=== PATIENT | male | born 1980 | race Caucasian/White ===

== ENCOUNTER 2018-01-09 14:10 | Inpatient (IN) | payer SELFPAY ==
[2018-01-09] MEDS ORDERED: KETOROLAC TROMETHAMINE INJ/PF 30 MG/1 ML SDV IV ONE (15:20)
--- NOTE | 2018-01-09 15:22 | ER Document Report ---
ED Medical Screen (RME) - General Chief Complaint: Back Pain Stated Complaint: BACK PAIN Time Seen by Provider: 01/09/18 15:09 Mode of Arrival: Wheelchair Information source: Patient Notes: 37-year-old male no history of diabetes presents with complaints of bilateral flank pain and increased thirst and urinary frequency Accu-Chek here over 400 I have greeted and performed a rapid initial assessment of this patient. A comprehensive ED assessment and evaluation of the patient, analysis of test results and completion of the medical decision making process will be conducted by additional ED providers. PHYSICAL EXAMINATION: GENERAL: Well-appearing, well-nourished and in no acute distress. HEAD: Atraumatic, normocephalic. EYES: Pupils equal round extraocular movements intact, conjunctiva are normal. ENT: Nares patent NECK: Normal range of motion LUNGS: No respiratory distress Musculoskeletal: Normal range of motion NEUROLOGICAL: Normal speech, normal gait. PSYCH: Normal mood, normal affect. SKIN: Warm, Dry, normal turgor, no rashes or lesions noted. TRAVEL OUTSIDE OF THE [place] IN LAST 30 DAYS: No - Related Data Allergies/Adverse Reactions: No Known Allergies Allergy (Unverified 08/20/11 20:01) Past Medical History - Social History Chew tobacco use (# tins/day): No Frequency of alcohol use: None Drug Abuse: None Renal/ Medical History: Denies: Hx Peritoneal Dialysis Musculoskeltal Medical History: Reports Hx Musculoskeletal Trauma Traumatic Medical History: Reports: Hx Fractures - Fractured clavicle - Immunizations Hx Diphtheria, Pertussis, Tetanus Vaccination: No Physical Exam - Vital signs Vitals: Temp Pulse Resp BP Pulse Ox 97.9 F 115 H 22 H 146/91 H 96 01/09/18 14:20 01/09/18 14:20 01/09/18 14:20 01/09/18 14:20 01/09/18 14:20 Course - Vital Signs Vital signs: Temp Pulse Resp BP Pulse Ox 97.9 F 115 H 22 H 146/91 H 96 01/09/18 14:20 01/09/18 14:20 01/09/18 14:20 01/09/18 14:20 01/09/18 14:20
[2018-01-09] MEDS: NORMAL SALINE 1000 ML 1,000 ML IV PRN ×2 (15:42→16:44)
--- NOTE | 2018-01-09 16:04 | ER Document Report ---
ED Blood Sugar Problem - General Chief Complaint: Back Pain Stated Complaint: BACK PAIN Time Seen by Provider: 01/09/18 15:09 Mode of Arrival: Wheelchair Information source: Patient Notes: Patient presents complaining of a one-week history of back pain. Patient denies any injury to the back. Patient states over the past few days that he has started to develop some tenderness to his abdomen. Patient does report increased thirst and urination. Patient denies any fever, cough or diarrhea. Patient states he has vomited twice today. Patient had an Accu-Chek performed in triage which was over 400. Patient denies any previous history of diabetes. TRAVEL OUTSIDE OF THE [place] IN LAST 30 DAYS: No - HPI Onset: Last week Onset/Duration: Gradual Quality of pain: Achy Pain Level: 3 Associated symptoms: Increased thirst, Frequent urination, Nausea, Vomiting. 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 denies: Arthritis, CAD, CVA, DM, Hyperlipidemia, Hypertension, Malignancy, Thyroid Disfunction Patient has suicidal ideation: No Patient has homicidal ideation: No Renal/ Medical History: Denies: Hx Peritoneal Dialysis Musculoskeltal Medical History: Reports Hx Musculoskeletal Trauma Traumatic Medical History: Reports: Hx Fractures - Fractured clavicle Surgical Hx: Negative - Immunizations Hx Diphtheria, Pertussis, Tetanus Vaccination: No Review of Systems - Review of Systems Constitutional: No symptoms reported. denies: Fever, Recent illness EENT: No symptoms reported Cardiovascular: No symptoms reported. denies: Chest pain Respiratory: No symptoms reported. denies: Cough, Short of breath Gastrointestinal: Abdominal pain, Nausea, Vomiting, Other - Increased thirst. denies: Diarrhea Genitourinary: Frequency, Flank pain Male Genitourinary: No symptoms reported Musculoskeletal: Back pain Skin: No symptoms reported Hematologic/Lymphatic: No symptoms reported Neurological/Psychological: No symptoms reported Physical Exam - Vital signs Vitals: Temp Pulse Resp BP Pulse Ox 97.9 F 115 H 22 H 146/91 H 96 01/09/18 14:20 01/09/18 14:20 01/09/18 14:20 01/09/18 14:20 01/09/18 14:20 - General General appearance: Alert In distress: Mild - HEENT Head: Normocephalic, Atraumatic Eyes: Normal Conjunctiva: Normal Nasal: Normal Mouth/Lips: Normal Mucous membranes: Dry Neck: Normal, Supple. No: Lymphadenopathy - Respiratory Respiratory status: No respiratory distress Chest status: Nontender Breath sounds: Normal Chest palpation: Normal - Cardiovascular Rhythm: Tachycardia Heart sounds: S1 appreciated, S2 appreciated Murmur: No - Abdominal Inspection: Morbidly Obese Distension: No distension Bowel sounds: Normal Tenderness: Tender - Diffuse tenderness, no focal area tenderness Organomegaly: No organomegaly - Back Back: Tender - Thoracolumbar paraspinal tenderness. No: CVA tenderness - Extremities General upper extremity: Normal inspection, Nontender, Normal ROM General lower extremity: Normal inspection, Nontender, Normal ROM - Neurological Neuro grossly intact: Yes Cognition: Normal Dandre Coma Scale Eye Opening: Spontaneous Dandre Coma Scale Verbal: Oriented [place] Coma Scale Motor: Obeys Commands [place] Coma Scale Total: 15 - Psychological Associated symptoms: Normal affect, Normal mood - Skin Skin Temperature: Warm Skin Moisture: Dry Skin Color: Normal Course - Re-evaluation Re-evalutation: 01/09/18 17:44 Patient with laboratory findings worrisome for new onset diabetes with DKA. Patient's potassium reviewed and insulin drip initiated. Consulted with Dr. cherry regarding patient plan of care. Agrees with starting insulin drip at this time. Consulted with hospitalist Dr. Fox who agrees to accept patient for telemetry admission at this time. Patient advised of need for admission and is agreeable at this time. - Vital Signs Vital signs: Temp Pulse Resp BP Pulse Ox 97.9 F 115 H 22 H 160/96 H 98 01/09/18 14:20 01/09/18 14:20 01/09/18 16:23 01/09/18 17:01 01/09/18 17:01 - Laboratory Result Diagrams: 01/09/18 15:40 01/09/18 15:40 Laboratory results interpreted by me: 01/09/18 01/09/18 01/09/18 15:40 15:40 15:40 WBC 19.5 H Abs Neuts (Manual) 12.9 H Abs Lymphs (Manual) 5.5 H VBG pH VBG pCO2 VBG HCO3 Sodium 136.3 L Carbon Dioxide < 5 L* Glucose 326 H POC Glucose Hemoglobin A1c % 9.2 H Magnesium Direct Bilirubin 0.6 H Alkaline Phosphatase 239 H Total Protein 9.0 H Urine Protein Urine Glucose (UA) Urine Ketones Urine Blood 01/09/18 01/09/18 01/09/18 16:36 16:40 17:30 WBC Abs Neuts (Manual) Abs Lymphs (Manual) VBG pH 7.11 L* VBG pCO2 29.4 L VBG HCO3 9.1 L Sodium Carbon Dioxide Glucose POC Glucose 380 H Hemoglobin A1c % Magnesium Direct Bilirubin Alkaline Phosphatase Total Protein Urine Protein >=500 H Urine Glucose (UA) >=500 H Urine Ketones 80 H Urine Blood SMALL H 01/09/18 01/09/18 17:34 18:05 WBC Abs Neuts (Manual) Abs Lymphs (Manual) VBG pH VBG pCO2 VBG HCO3 Sodium Carbon Dioxide Glucose POC Glucose 300 H Hemoglobin A1c % Magnesium 1.5 L Direct Bilirubin Alkaline Phosphatase Total Protein Urine Protein Urine Glucose (UA) Urine Ketones Urine Blood Labs- Entire Visit 01/09/18 01/09/18 01/09/18 15:40 15:40 15:40 WBC 19.5 H RBC 5.15 Hgb 15.0 Hct 45.0 MCV 87 MCH 28.6 MCHC 33.5 RDW 13.9 Plt Count 328 Total Counted 100 Seg Neutrophils % Not Reportable Seg Neuts % (Manual) 66 Lymphocytes % Not Reportable Lymphocytes % (Manual) 28 Monocytes % Not Reportable Monocytes % (Manual) 6 Eosinophils % Not Reportable Eosinophils % (Manual) 0 Basophils % Not Reportable Basophils % (Manual) 0 Absolute Neutrophils Not Reportable Abs Neuts (Manual) 12.9 H Absolute Lymphocytes Not Reportable Abs Lymphs (Manual) 5.5 H Absolute Monocytes Not Reportable Abs Monocytes (Manual) 1.2 Absolute Eosinophils Not Reportable Absolute Eos (Manual) 0.0 Absolute Basophils Not Reportable Abs Basophils (Manual) 0.0 Platelet Comment ADEQUATE RBC Morph Comment NORMO-CYTIC/CHROMIC VBG pH VBG pCO2 VBG HCO3 VBG Base Excess Sodium 136.3 L Potassium 4.8 Chloride 102 Carbon Dioxide < 5 L* Anion Gap Not Reportable BUN 11 Creatinine 0.68 Est GFR ( Amer) > 60 Est GFR (Non-Af Amer) > 60 Glucose 326 H POC Glucose Hemoglobin A1c % 9.2 H Calcium 8.6 Total Bilirubin 0.8 Direct Bilirubin 0.6 H Neonat Total Bilirubin Not Reportable Neonat Direct Bilirubin Not Reportable Neonat Indirect Bili Not Reportable AST 19 ALT 61 Alkaline Phosphatase 239 H Total Protein 9.0 H Albumin 3.6 01/09/18 01/09/18 16:36 16:40 WBC RBC Hgb Hct MCV MCH MCHC RDW Plt Count Total Counted Seg Neutrophils % Seg Neuts % (Manual) Lymphocytes % Lymphocytes % (Manual) Monocytes % Monocytes % (Manual) Eosinophils % Eosinophils % (Manual) Basophils % Basophils % (Manual) Absolute Neutrophils Abs Neuts (Manual) Absolute Lymphocytes Abs Lymphs (Manual) Absolute Monocytes Abs Monocytes (Manual) Absolute Eosinophils Absolute Eos (Manual) Absolute Basophils Abs Basophils (Manual) Platelet Comment RBC Morph Comment VBG pH 7.11 L* VBG pCO2 29.4 L VBG HCO3 9.1 L VBG Base Excess -19.1 Sodium Potassium Chloride Carbon Dioxide Anion Gap BUN Creatinine Est GFR ( Amer) Est GFR (Non-Af Amer) Glucose POC Glucose 380 H Hemoglobin A1c % Calcium Total Bilirubin Direct Bilirubin Neonat Total Bilirubin Neonat Direct Bilirubin Neonat Indirect Bili AST ALT Alkaline Phosphatase Total Protein Albumin - Diagnostic Test Radiology reviewed: Reports reviewed Discharge - Discharge Clinical Impression: Diabetes mellitus, new onset DKA (diabetic ketoacidoses) Qualifiers: Diabetes mellitus type: type 2 Diabetes mellitus complication detail: without coma Qualified Code(s): E11.10 - Type 2 diabetes mellitus with ketoacidosis without coma Back pain Qualifiers: Back pain location: low back pain Chronicity: unspecified Back pain laterality : bilateral Sciatica presence: without sciatica Qualified Code(s): M54.5 - Low back pain Nausea & vomiting Qualifiers: Vomiting type: unspecified Vomiting Intractability: non-intractable Qualified Code(s): R11.2 - Nausea with vomiting, unspecified Condition: Fair Disposition: ADMITTED INPATIENT Admitting Provider: Hospitalist Unit Admitted: Telemetry
[2018-01-09 16:20] LABS: MEAN CORPUSCULAR VOLUME 87 fl (80-97); PLATELET COUNT 328 10^3/uL (150-450); RED BLOOD COUNT 5.15 10^6/uL (4.35-5.55); RED CELL DISTRIBUTION WIDTH 13.9 % (11.5-14.0); WHITE BLOOD COUNT 19.5 10^3/uL (4.0-10.5)
[2018-01-09 16:34] LABS: ALANINE AMINOTRANSFERASE 61 U/L (21-72); ALBUMIN 3.6 g/dL (3.5-5.0); ALKALINE PHOSPHATASE 239 U/L (38-126); ASPARTATE AMINO TRANSFERASE 19 U/L (17-59); BILIRUBIN,DIRECT 0.6 mg/dL (0.0-0.4); BILIRUBIN,TOTAL 0.8 mg/dL (0.2-1.3); BLOOD UREA NITROGEN 11 mg/dL (7-20); CHLORIDE 102 mmol/L (98-107); GLUCOSE 326 mg/dL (75-110); POTASSIUM 4.8 mmol/L (3.6-5.0); SODIUM 136.3 mmol/L (137-145)
[2018-01-09 16:48] LABS: MEAN CORPUSCULAR HEMOGLOBIN 28.6 pg (27.0-33.4); MEAN CORPUSCULAR HGB CONC 33.5 g/dL (32.0-36.0)
[2018-01-09 16:50] LABS: ABSOLUTE LYMPHOCYTES# (MANUAL) 5.5 10^3/uL (0.5-4.7); ABSOLUTE MONOCYTES # (MANUAL) 1.2 10^3/uL (0.1-1.4); ABSOLUTE NEUTROPHILS# (MANUAL) 12.9 10^3/uL (1.7-8.2); BASOPHILS % (MANUAL) 0 % (0-2); EOSINOPHILS % (MANUAL) 0 % (0-6); LYMPHOCYTES % (MANUAL) 28 % (13-45); MONOCYTES % (MANUAL) 6 % (3-13); SEGMENTED NEUTROPHILS % (MAN) 66 % (42-78); TOTAL CELLS COUNTED 100
[2018-01-09 16:51] LABS: PLATELET COMMENT ADEQUATE; RBC MORPHOLOGY COMMENT NORMO-CYTIC/CHROMIC
[2018-01-09 16:55] LABS: VENOUS BLOOD BASE EXCESS -19.1 mmol/L; VENOUS BLOOD HCO3 9.1 mmol/L (20-32); VENOUS BLOOD PCO2 29.4 mmHg (35-63)
[2018-01-09 16:56] LABS: VENOUS BLOOD PH 7.11 (7.30-7.42)
[2018-01-09 17:19] LABS: CARBON DIOXIDE < 5 mmol/L (22-30)
[2018-01-09 17:21] LABS: CALCIUM 8.6 mg/dL (8.4-10.2)
--- NOTE | 2018-01-09 17:33 | RADIOLOGY REPORT (SQ) ---
EXAM DESCRIPTION: CT LTD RENAL STONE PROTOCOL ON COMPLETED DATE/TIME: 01/09/2018 3:33 pm REASON FOR STUDY: flank pain COMPARISON: None. TECHNIQUE: CT scan of the abdomen and pelvis performed without intravenous or oral contrast. Images reviewed with lung, soft tissue, and bone windows. Reconstructed coronal and sagittal MPR images revi ewed. All images stored on PACS. All CT scanners at this facility use dose modulation, iterative reconstruction, and/or weight based d osing when appropriate to reduce radiation dose to as low as reasonably achievable (ALARA). [facility]: Dose Right [facility]: CareDose [facility]: Dose Right [facility]: Teradose 4D [facility]: [employer] RADIATION DOSE: mGy. LIMITATIONS: None. FINDINGS: LOWER CHEST: No significant findings. No nodules or infiltrates. NON-CONTRASTED LIVER, SPLEEN, ADRENALS: Evaluation limited by lack of IV contrast. No identified sign ificant masses. PANCREAS: No masses. No peripancreatic inflammatory changes. GALLBLADDER: No identified stones by CT criteria. No inflammatory changes to suggest cholecystitis. RIGHT KIDNEY AND URETER: No suspicious masses. Assessment limited by lack of IV contrast. No signif icant calcifications. No hydronephrosis or hydroureter. LEFT KIDNEY AND URETER: No suspicious masses. Assessment limited by lack of IV contrast. No signifi cant calcifications. No hydronephrosis or hydroureter. AORTA AND RETROPERITONEUM: No aneurysm. No retroperitoneal masses or adenopathy. BOWEL AND PERITONEAL CAVITY: No obvious masses or inflammatory changes. No free fluid. APPENDIX: Normal. PELVIS, BLADDER, AND ABDOMINAL WALL:No abnormal masses. No free fluid. Bladder normal. BONES: No significant findings. OTHER: No other significant finding. IMPRESSION: NO SIGNIFICANT OR ACUTE PROCESS IN THE ABDOMEN OR PELVIS. COMMENT: Quality ID # [id number]: Final reports with documentation of one or more dose reduction techniques (e.g., Automated exposure control, adjustment of the mA and/or kV according to patient size, use of iterative reconstruction technique) TECHNICAL DOCUMENTATION: JOB ID: [id number] [employer]- All Rights Reserved Reading location - IP/workstation name: [email or web address]
[2018-01-09] MEDS ORDERED: NORMAL SALINE 100 ML with INSULIN REGULAR, HUMAN 100 UNIT IV PRN ×2 (17:36)
[2018-01-09] MEDS ORDERED: NORMAL SALINE 1000 ML 1,000 ML IV ONE (17:38)
[2018-01-09] MEDS ORDERED: INSULIN REG, HUMAN 100 UNIT/ML 3 ML VIAL (PYX) ONE ×2 (17:57→18:20)
[2018-01-09 18:12] LABS: APPEARANCE,URINE CLEAR; BILIRUBIN,URINE NEGATIVE (NEGATIVE); COLOR,URINE YELLOW; GLUCOSE, URINE >=500 mg/dL (NEGATIVE); KETONES,URINE 80 mg/dL (NEGATIVE); LEUKOCYTE ESTERASE,URINE NEGATIVE (NEGATIVE); NITRITE,URINE NEGATIVE (NEGATIVE); PROTEIN,URINE >=500 mg/dL (NEGATIVE); UROBILINOGEN,URINE NEGATIVE mg/dL (<2.0)
[2018-01-09] MEDS ORDERED: GLUCAGON,HUMAN RECOMB 1 MG INJ IM PRN (18:14)
[2018-01-09] MEDS ORDERED: NORMAL SALINE 1000 ML 1,000 ML IV PRN (18:14)
[2018-01-09] MEDS ORDERED: DEXTROSE 40% GEL 15 GM TUBE PO PRN ×2 (18:14)
[2018-01-09] MEDS ORDERED: DEXTROSE 50%-WATER 25 GM/50 ML DISP.SYRIN IV PRN ×2 (18:14)
[2018-01-09] MEDS ORDERED: ACETAMINOPHEN 325 MG TABLET PO PRN (18:17)
[2018-01-09] MEDS ORDERED: ONDANSETRON 4 MG TAB.RAPDIS PO PRN (18:17)
[2018-01-09] MEDS ORDERED: ALBUTEROL SULFATE 0.083% NEB 2.5 MG/3 ML AMPUL NEB PRN (18:17)
[2018-01-09] MEDS ORDERED: ONDANSETRON HCL INJ/PF 4 MG/2 ML SDV IV PRN (18:17)
[2018-01-09] MEDS ORDERED: LORAZEPAM 0.5 MG TABLET PO PRN (18:45)
[2018-01-09 18:46] LABS: BLOOD UREA NITROGEN 9 mg/dL (7-20); CALCIUM 7.6 mg/dL (8.4-10.2); CHLORIDE 108 mmol/L (98-107); GLUCOSE 256 mg/dL (75-110); POTASSIUM 4.6 mmol/L (3.6-5.0); SODIUM 135.6 mmol/L (137-145)
--- NOTE | 2018-01-09 18:47 | PDOC H&P ---
History of Present Illness Admission Date/PCP: 01/09/18 Patient complains of: Abdominal pain fatigue History of Present Illness: 37 year old male with no significant past medical history other than a pack a day smoker, who developed mid abdominal pain, nausea vomiting fatigue over the past 3 days. He came into the emergency room and was found to be in diabetic ketoacidosis. A CAT scan of the abdomen and pelvis was done, this was unremarkable. He has been started on an insulin drip. Past Medical History Medical History: None Social History Smoking Status: Current Every Day Smoker Frequency of Alcohol Use: Rare Hx Recreational Drug Use: No Hx Prescription Drug Abuse: No - Advance Directive Resuscitation Status: Full Code Family History Family History: None Parental Family History Reviewed: Yes Children Family History Reviewed: Yes Sibling(s) Family History Reviewed.: Yes Medication/Allergy Home Medications: No Home Medications 1 08/20/11 Allergies/Adverse Reactions: No Known Allergies Allergy (Unverified 08/20/11 20:01) Review of Systems Constitutional: ABSENT: fever(s) Eyes: ABSENT: visual disturbances Ears: ABSENT: hearing changes Cardiovascular: ABSENT: chest pain Respiratory: ABSENT: dyspnea Gastrointestinal: PRESENT: abdominal pain, nausea, vomiting. ABSENT: diarrhea, hematochezia Genitourinary: ABSENT: dysuria Musculoskeletal: ABSENT: joint swelling Integumentary: ABSENT: pruritus Neurological: ABSENT: focal weakness Psychiatric: ABSENT: hallucinations Endocrine: PRESENT: polydipsia, polyuria Hematologic/Lymphatic: ABSENT: easy bleeding Allergic/Immunologic: ABSENT: seasonal rhinorrhea Physical Exam Vital Signs: Temp Pulse Resp BP Pulse Ox 97.9 F 115 H 22 H 160/96 H 98 01/09/18 14:20 01/09/18 14:20 01/09/18 16:23 01/09/18 17:01 01/09/18 17:01 Intake & Output 01/08/18 01/09/18 01/10/18 06:59 06:59 06:59 Weight 117.6 kg General appearance: PRESENT: no acute distress, well-developed, well-nourished Head exam: PRESENT: normocephalic Eye exam: ABSENT: scleral icterus Ear exam: PRESENT: normal external ear exam Mouth exam: PRESENT: dry mucosa Neck exam: ABSENT: tracheal deviation Respiratory exam: PRESENT: symmetrical, unlabored. ABSENT: wheezes Cardiovascular exam: PRESENT: RRR GI/Abdominal exam: PRESENT: normal bowel sounds, soft. ABSENT: tenderness Rectal exam: PRESENT: deferred Gentrourinary exam: ABSENT: indwelling catheter Extremities exam: ABSENT: pedal edema Neurological exam: PRESENT: alert, awake, oriented to person, oriented to place , oriented to time, oriented to situation Psychiatric exam: PRESENT: appropriate affect Skin exam: ABSENT: petechiae Results Laboratory Results: 01/09/18 15:40 01/09/18 01/09/18 01/09/18 15:40 15:40 16:40 WBC 19.5 H RBC 5.15 Hgb 15.0 Hct 45.0 MCV 87 MCH 28.6 MCHC 33.5 RDW 13.9 Plt Count 328 Seg Neutrophils % Not Reportable Lymphocytes % Not Reportable Monocytes % Not Reportable Eosinophils % Not Reportable Basophils % Not Reportable Absolute Neutrophils Not Reportable Absolute Lymphocytes Not Reportable Absolute Monocytes Not Reportable Absolute Eosinophils Not Reportable Absolute Basophils Not Reportable VBG pH 7.11 L* VBG pCO2 29.4 L VBG HCO3 9.1 L VBG Base Excess -19.1 Sodium 136.3 L Potassium 4.8 Chloride 102 Carbon Dioxide < 5 L* Anion Gap Not Reportable BUN 11 Creatinine 0.68 Est GFR ( Amer) > 60 Est GFR (Non-Af Amer) > 60 Glucose 326 H Calcium 8.6 Total Bilirubin 0.8 AST 19 ALT 61 Alkaline Phosphatase 239 H Total Protein 9.0 H Albumin 3.6 Urine Color Urine Appearance Urine pH Ur Specific [place] Urine Protein Urine Glucose (UA) Urine Ketones Urine Blood Urine Nitrite Ur Leukocyte Esterase Urine WBC (Auto) Urine RBC (Auto) 01/09/18 17:30 WBC RBC Hgb Hct MCV MCH MCHC RDW Plt Count Seg Neutrophils % Lymphocytes % Monocytes % Eosinophils % Basophils % Absolute Neutrophils Absolute Lymphocytes Absolute Monocytes Absolute Eosinophils Absolute Basophils VBG pH VBG pCO2 VBG HCO3 VBG Base Excess Sodium Potassium Chloride Carbon Dioxide Anion Gap BUN Creatinine Est GFR ( Amer) Est GFR (Non-Af Amer) Glucose Calcium Total Bilirubin AST ALT Alkaline Phosphatase Total Protein Albumin Urine Color YELLOW Urine Appearance CLEAR Urine pH 5.0 Ur Specific [place] 1.030 Urine Protein >=500 H Urine Glucose (UA) >=500 H Urine Ketones 80 H Urine Blood SMALL H Urine Nitrite NEGATIVE Ur Leukocyte Esterase NEGATIVE Urine WBC (Auto) 0 Urine RBC (Auto) 0 Impressions: Limited or Localized CT 01/09/18 15:20 IMPRESSION: NO SIGNIFICANT OR ACUTE PROCESS IN THE ABDOMEN OR PELVIS. Assessment & Plan - Diagnosis (1) DKA (diabetic ketoacidoses) Qualifiers: Diabetes mellitus type: type 2 Diabetes mellitus complication detail: without coma Qualified Code(s): E11.10 - Type 2 diabetes mellitus with ketoacidosis without coma Is this a current diagnosis for this admission?: Yes Plan: IV fluids. Monitor basic metabolic panel and electrolytes. IV insulin drip, adjust per protocol. Check hemoglobin A1c and lipid panel. (2) Tobacco dependence Is this a current diagnosis for this admission?: Yes Plan: Nicotine patch as needed. - Time Time Spent: 50 to 70 Minutes - Inpatient Certification Based on my medical assessment, after consideration of the patient's comorbidities, presenting symptoms, or acuity I expect that the services needed warrant INPATIENT care.: Yes I certify that my determination is in accordance with my understanding of Medicare's requirements for reasonable and necessary INPATIENT services [42 CFR 412.3e].: Yes Medical Necessity: Need Close Monitoring Due to Risk of Patient Decompensation, Need For IV Fluids, Risk of Complication if Not Cared For in Hospital
[2018-01-09 19:19] LABS: CARBON DIOXIDE < 5 mmol/L (22-30)
[2018-01-09] MEDS ORDERED: NICOTINE 21 MG/24 HR PATCH.TD24 TD ONE (19:30)
[2018-01-09] MEDS ORDERED: DEXTROSE 5%-NORMAL SALINE 1,000 ML IV PRN (19:55)
[2018-01-09 20:17] LABS: URINE AMPHETAMINES SCREEN NEGATIVE; URINE BARBITURATES SCREEN NEGATIVE; URINE BENZODIAZEPINES SCREEN NEGATIVE; URINE COCAINE SCREEN NEGATIVE; URINE MARIJUANA (THC) SCREEN NEGATIVE; URINE METHADONE SCREEN NEGATIVE; URINE PHENCYCLIDINE SCREEN NEGATIVE
[2018-01-09] MEDS: POTASSI CL 20 MEQ/D5-1/2NS 1L 1,000 ML IV PRN (20:17)
[2018-01-09 20:22] LABS: TROPONIN I < 0.012 ng/mL
[2018-01-09 20:23] LABS: CREATINE KINASE MB 0.56 ng/mL (<4.55)
[2018-01-09] MEDS ORDERED: KETOROLAC TROMETHAMINE INJ/PF 30 MG/1 ML SDV IV PRN (20:29)
[2018-01-09 22:27] LABS: BLOOD UREA NITROGEN 8 mg/dL (7-20); CHLORIDE 112 mmol/L (98-107); GLUCOSE 201 mg/dL (75-110); POTASSIUM 4.2 mmol/L (3.6-5.0); SODIUM 137.3 mmol/L (137-145)
[2018-01-09 22:42] LABS: CALCIUM 7.3 mg/dL (8.4-10.2); CARBON DIOXIDE < 5 mmol/L (22-30)
[2018-01-10] MEDS: PANTOPRAZOLE SODIUM 40 MG VIAL IV SCH ×3 (00:38→21:30)
[2018-01-10] MEDS: POTASSI CL 20 MEQ/D5-1/2NS 1L 1,000 ML IV PRN ×5 (01:32→22:22)
[2018-01-10 02:39] LABS: CREATINE KINASE MB 0.65 ng/mL (<4.55); TROPONIN I < 0.012 ng/mL
[2018-01-10 02:44] LABS: BLOOD UREA NITROGEN 7 mg/dL (7-20); CALCIUM 7.5 mg/dL (8.4-10.2); CHLORIDE 114 mmol/L (98-107); CREATINE KINASE 61 U/L (55-170); GLUCOSE 164 mg/dL (75-110); PHOSPHORUS 2.4 mg/dL (2.5-4.5); POTASSIUM 4.3 mmol/L (3.6-5.0); SODIUM 137.1 mmol/L (137-145)
[2018-01-10 03:00] LABS: CARBON DIOXIDE < 5 mmol/L (22-30)
[2018-01-10 03:17] LABS: ARTERIAL BLOOD BASE EXCESS -17.8 mmol/L; ARTERIAL BLOOD H2CO3 0.65 mmol/L (1.05-1.35); ARTERIAL BLOOD HCO3 8.3 mmol/L (20-26); ARTERIAL BLOOD O2 SATURATION 95.5 % (94-98); ARTERIAL BLOOD PCO2 21.6 mmHg (35-45); ARTERIAL BLOOD TOTAL CO2 8.9 mmol/L (23-27)
[2018-01-10 03:20] LABS: ARTERIAL BLOOD FIO2 ROOM AIR
[2018-01-10] MEDS: NORMAL SALINE 100 ML with INSULIN REGULAR, HUMAN 100 UNIT IV PRN ×10 (03:53→22:21)
[2018-01-10] MEDS ORDERED: INSULIN REG, HUMAN 100 UNIT/ML 3 ML VIAL (PYX) ONE (03:53)
[2018-01-10] MEDS: PHOSPHORUS #1 250 MG TABLET PO SCH ×3 (05:07→17:23)
--- NOTE | 2018-01-10 06:19 | EKG REPORT ---
SEVERITY:- ABNORMAL ECG - SINUS TACHYCARDIA LEFT ANTERIOR FASCICULAR BLOCK ABNRM R PROG, CONSIDER ASMI OR LEAD PLACEMENT BORDERLINE PROLONGED QT INTERVAL : Confirmed by: Andre Siddiqui MD 10-Jan-2018 06:19:08
[2018-01-10 06:42] LABS: BLOOD UREA NITROGEN 6 mg/dL (7-20); CALCIUM 7.5 mg/dL (8.4-10.2); CHLORIDE 114 mmol/L (98-107); CREATINE KINASE 58 U/L (55-170); GLUCOSE 136 mg/dL (75-110); POTASSIUM 3.8 mmol/L (3.6-5.0); SODIUM 136.7 mmol/L (137-145)
[2018-01-10 06:57] LABS: HEMATOCRIT 37.9 % (37.9-51.0); MEAN CORPUSCULAR VOLUME 84 fl (80-97); PLATELET COUNT 244 10^3/uL (150-450); RED BLOOD COUNT 4.49 10^6/uL (4.35-5.55); RED CELL DISTRIBUTION WIDTH 13.7 % (11.5-14.0); WHITE BLOOD COUNT 15.6 10^3/uL (4.0-10.5)
[2018-01-10 07:24] LABS: MEAN CORPUSCULAR HEMOGLOBIN 28.3 pg (27.0-33.4); MEAN CORPUSCULAR HGB CONC 33.5 g/dL (32.0-36.0)
[2018-01-10 07:29] LABS: ABSOLUTE LYMPHOCYTES# (MANUAL) 3.7 10^3/uL (0.5-4.7); ABSOLUTE MONOCYTES # (MANUAL) 1.4 10^3/uL (0.1-1.4); ABSOLUTE NEUTROPHILS# (MANUAL) 10.1 10^3/uL (1.7-8.2); BAND NEUTROPHILS % (MANUAL) 2 % (3-5); BASOPHILS % (MANUAL) 1 % (0-2); EOSINOPHILS % (MANUAL) 1 % (0-6); LYMPHOCYTES % (MANUAL) 24 % (13-45); METAMYELOCYTES % (MANUAL) 1 % (0); MONOCYTES % (MANUAL) 9 % (3-13); SEGMENTED NEUTROPHILS % (MAN) 62 % (42-78); TOTAL CELLS COUNTED 100
[2018-01-10 07:32] LABS: PLATELET COMMENT ADEQUATE; RBC MORPHOLOGY COMMENT NORMO-CYTIC/CHROMIC
[2018-01-10 07:58] LABS: HEMOGLOBIN 12.7 g/dL (13.5-17.0)
[2018-01-10 09:08] LABS: CHOLESTEROL 499.21 mg/dL (0-200); TRIGLYCERIDES 6280 mg/dL (<150)
[2018-01-10 09:09] LABS: ANION GAP 18 (5-19); DIRECT LDL 170 mg/dL (<100)
[2018-01-10 09:14] LABS: CARBON DIOXIDE 5 mmol/L (22-30)
[2018-01-10 09:18] LABS: CREATINE KINASE MB 0.52 ng/mL (<4.55)
[2018-01-10 09:20] LABS: TROPONIN I < 0.012 ng/mL
[2018-01-10] MEDS: MAGNESIUM SULFATE/D5W 1 GM/100 ML RTUPB IV SCH ×2 (10:02→12:10)
--- NOTE | 2018-01-10 11:39 | PDOC PROGRESS REPORT ---
Subjective Progress Note for:: 01/10/18 Subjective:: 37 yr old male who presented with newly diagnosed was found to be in DKA. He is on IV fluids and Insulin gtt. Abdominal pain has resolved. Reason For Visit: DKA Physical Exam Vital Signs: Temp Pulse Resp BP Pulse Ox 98.1 F 85 16 147/74 H 97 01/10/18 04:03 01/10/18 09:56 01/10/18 09:56 01/10/18 04:03 01/10/18 09:56 Intake & Output 01/09/18 01/10/18 01/11/18 06:59 06:59 06:59 Intake Total 2069 Balance 2069 Weight 121.9 kg General appearance: PRESENT: no acute distress Head exam: PRESENT: normocephalic Ear exam: PRESENT: normal external ear exam Mouth exam: PRESENT: neck supple Neck exam: ABSENT: tracheal deviation Respiratory exam: PRESENT: symmetrical, unlabored Cardiovascular exam: PRESENT: RRR GI/Abdominal exam: PRESENT: normal bowel sounds, soft. ABSENT: tenderness Rectal exam: PRESENT: deferred Extremities exam: ABSENT: pedal edema Results Laboratory Results: 01/10/18 06:12 01/10/18 06:12 01/09/18 01/10/18 01/10/18 22:00 02:01 02:01 WBC RBC Hgb Hct MCV MCH MCHC RDW Plt Count Seg Neutrophils % Lymphocytes % Monocytes % Eosinophils % Basophils % Absolute Neutrophils Absolute Lymphocytes Absolute Monocytes Absolute Eosinophils Absolute Basophils Carbonic Acid HCO3/H2CO3 Ratio ABG pH ABG pCO2 ABG pO2 ABG HCO3 ABG O2 Saturation ABG Base Excess FiO2 Sodium 137.3 137.1 Potassium 4.2 4.3 Chloride 112 H 114 H Carbon Dioxide < 5 L* < 5 L* Anion Gap Not 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 BUN 8 7 Creatinine 0.45 L 0.48 L Est GFR ( Amer) > 60 > 60 Est GFR (Non-Af Amer) > 60 > 60 Glucose 201 H 164 H Calcium 7.3 L 7.5 L Phosphorus 2.4 L Magnesium Triglycerides Cholesterol LDL Cholesterol Direct VLDL Cholesterol HDL Cholesterol Lipase 1380.9 H 01/10/18 01/10/18 01/10/18 03:05 06:12 06:12 WBC 15.6 H RBC 4.49 Hgb 12.7 L D Hct 37.9 MCV 84 MCH 28.3 MCHC 33.5 RDW 13.7 Plt Count 244 Seg Neutrophils % Not Reportable Lymphocytes % Not Reportable Monocytes % Not Reportable Eosinophils % Not Reportable Basophils % Not Reportable Absolute Neutrophils Not Reportable Absolute Lymphocytes Not Reportable Absolute Monocytes Not Reportable Absolute Eosinophils Not Reportable Absolute Basophils Not Reportable Carbonic Acid 0.65 L HCO3/H2CO3 Ratio 12:1 ABG pH 7.20 L* ABG pCO2 21.6 L ABG pO2 92.0 ABG HCO3 8.3 L ABG O2 Saturation 95.5 ABG Base Excess -17.8 FiO2 ROOM AIR Sodium 136.7 L Potassium 3.8 Chloride 114 H Carbon Dioxide 5 L* Anion Gap 18 BUN 6 L Creatinine 0.48 L Est GFR ( Amer) > 60 Est GFR (Non-Af Amer) > 60 Glucose 136 H Calcium 7.5 L Phosphorus 2.0 L Magnesium 1.7 Triglycerides 6280 H Cholesterol 499.21 H LDL Cholesterol Direct 170 H VLDL Cholesterol UNABLE TO CALCULATE HDL Cholesterol 23 L Lipase 01/10/18 01/10/18 01/10/18 02:01 02:01 06:12 Creatine Kinase 61 58 CK-MB (CK-2) 0.65 Troponin I < 0.012 01/10/18 08:00 Creatine Kinase CK-MB (CK-2) 0.52 Troponin I < 0.012 Impressions: Limited or Localized CT 01/09/18 15:20 IMPRESSION: NO SIGNIFICANT OR ACUTE PROCESS IN THE ABDOMEN OR PELVIS. Assessment & Plan - Diagnosis (1) DKA (diabetic ketoacidoses) Qualifiers: Diabetes mellitus type: type 2 Diabetes mellitus complication detail: without coma Qualified Code(s): E11.10 - Type 2 diabetes mellitus with ketoacidosis without coma Is this a current diagnosis for this admission?: Yes Plan: Continue IV fluids. Monitor basic metabolic panel and electrolytes. Continue IV insulin drip, adjust per protocol. (2) Tobacco dependence Is this a current diagnosis for this admission?: Yes Plan: Nicotine patch as needed. (3) Hypomagnesemia Is this a current diagnosis for this admission?: Yes Plan: Replete (4) Hypophosphatemia Is this a current diagnosis for this admission?: Yes Plan: Replete - Time Time Spent with patient: 35 or more minutes
[2018-01-10 13:26] LABS: BLOOD UREA NITROGEN 5 mg/dL (7-20); CALCIUM 7.9 mg/dL (8.4-10.2); CHLORIDE 113 mmol/L (98-107); GLUCOSE 110 mg/dL (75-110); POTASSIUM 3.9 mmol/L (3.6-5.0); SODIUM 134.8 mmol/L (137-145)
[2018-01-10 13:31] LABS: ANION GAP 13 (5-19)
[2018-01-10 13:35] LABS: CARBON DIOXIDE 9 mmol/L (22-30)
[2018-01-10] MEDS ORDERED: NICOTINE 21 MG/24 HR PATCH.TD24 TD PRN (14:34)
[2018-01-10 19:17] LABS: ANION GAP 13 (5-19); BLOOD UREA NITROGEN 4 mg/dL (7-20); CALCIUM 7.7 mg/dL (8.4-10.2); CARBON DIOXIDE 11 mmol/L (22-30); CHLORIDE 112 mmol/L (98-107); GLUCOSE 137 mg/dL (75-110); PHOSPHORUS 1.7 mg/dL (2.5-4.5); POTASSIUM 3.5 mmol/L (3.6-5.0); SODIUM 135.9 mmol/L (137-145)
[2018-01-10 22:50] LABS: ANION GAP 11 (5-19); BLOOD UREA NITROGEN 3 mg/dL (7-20); CALCIUM 7.9 mg/dL (8.4-10.2); CARBON DIOXIDE 13 mmol/L (22-30); CHLORIDE 112 mmol/L (98-107); GLUCOSE 151 mg/dL (75-110); PHOSPHORUS 1.6 mg/dL (2.5-4.5); POTASSIUM 3.7 mmol/L (3.6-5.0); SODIUM 135.7 mmol/L (137-145)
[2018-01-11] MEDS: PHOSPHORUS #1 250 MG TABLET PO SCH (00:35)
[2018-01-11 02:31] LABS: ANION GAP 12 (5-19); BLOOD UREA NITROGEN 3 mg/dL (7-20); CALCIUM 7.9 mg/dL (8.4-10.2); CARBON DIOXIDE 12 mmol/L (22-30); CHLORIDE 114 mmol/L (98-107); GLUCOSE 104 mg/dL (75-110); POTASSIUM 3.5 mmol/L (3.6-5.0); SODIUM 138.3 mmol/L (137-145)
[2018-01-11] MEDS: POTASSI CL 20 MEQ/D5-1/2NS 1L 1,000 ML IV PRN ×4 (03:36→20:02)
[2018-01-11] MEDS: NORMAL SALINE 100 ML with INSULIN REGULAR, HUMAN 100 UNIT IV PRN ×8 (03:38→22:07)
[2018-01-11 07:31] LABS: ANION GAP 10 (5-19); BLOOD UREA NITROGEN 3 mg/dL (7-20); CALCIUM 7.8 mg/dL (8.4-10.2); CARBON DIOXIDE 15 mmol/L (22-30); CHLORIDE 113 mmol/L (98-107); GLUCOSE 107 mg/dL (75-110); PHOSPHORUS 1.9 mg/dL (2.5-4.5); SODIUM 138.3 mmol/L (137-145)
[2018-01-11 07:46] LABS: POTASSIUM 3.3 mmol/L (3.6-5.0)
[2018-01-11 10:55] LABS: ANION GAP 11 (5-19); BLOOD UREA NITROGEN 3 mg/dL (7-20); CARBON DIOXIDE 15 mmol/L (22-30); CHLORIDE 112 mmol/L (98-107); GLUCOSE 104 mg/dL (75-110); POTASSIUM 3.3 mmol/L (3.6-5.0); SODIUM 138.3 mmol/L (137-145)
--- NOTE | 2018-01-11 11:39 | PDOC PROGRESS REPORT ---
Subjective Progress Note for:: 01/11/18 Subjective:: Doing a little better. Continues on Insulin GTT with better blood sugar control. Complaining of nausea. Wants to eat. No other complaints. Reason For Visit: DKA Physical Exam Vital Signs: Temp Pulse Resp BP Pulse Ox 98.8 F 101 H 16 145/78 H 98 01/11/18 11:23 01/11/18 11:23 01/11/18 11:23 01/11/18 11:23 01/11/18 11:23 Intake & Output 01/10/18 01/11/18 01/12/18 06:59 06:59 06:59 Intake Total 2069 5908 0 Balance 2069 5908 0 Weight 121.9 kg 124 kg General appearance: PRESENT: no acute distress, obese Head exam: PRESENT: normocephalic Mouth exam: PRESENT: moist Respiratory exam: PRESENT: unlabored. ABSENT: tachypnea Cardiovascular exam: PRESENT: +S1, +S2 GI/Abdominal exam: PRESENT: normal bowel sounds, soft. ABSENT: tenderness Neurological exam: PRESENT: alert, awake, CN II-XII grossly intact Psychiatric exam: PRESENT: appropriate affect Skin exam: PRESENT: dry, intact Results Laboratory Results: 01/10/18 06:12 01/11/18 10:22 01/10/18 01/10/18 01/10/18 02:01 12:40 18:38 Sodium 134.8 L 135.9 L Potassium 3.9 3.5 L Chloride 113 H 112 H Carbon Dioxide 9 L* 11 L Anion Gap 13 13 BUN 5 L 4 L Creatinine 0.42 L 0.39 L Est GFR ( Amer) > 60 > 60 Est GFR (Non-Af Amer) > 60 > 60 Glucose 110 137 H Calcium 7.9 L 7.7 L Phosphorus 1.9 L 1.7 L Magnesium 01/10/18 01/11/18 01/11/18 22:22 02:13 06:05 Sodium 135.7 L 138.3 Cancelled Potassium 3.7 3.5 L Cancelled Chloride 112 H 114 H Cancelled Carbon Dioxide 13 L 12 L Cancelled Anion Gap 11 12 Cancelled BUN 3 L 3 L Cancelled Creatinine 0.42 L 0.45 L Cancelled Est GFR ( Amer) > 60 > 60 Cancelled Est GFR (Non-Af Amer) > 60 > 60 Cancelled Glucose 151 H 104 Cancelled Calcium 7.9 L 7.9 L Cancelled Phosphorus 1.6 L Cancelled Magnesium Cancelled 01/11/18 01/11/18 07:03 10:22 Sodium 138.3 138.3 Potassium 3.3 L 3.3 L Chloride 113 H 112 H Carbon Dioxide 15 L 15 L Anion Gap 10 11 BUN 3 L 3 L Creatinine 0.43 L 0.42 L Est GFR ( Amer) > 60 > 60 Est GFR (Non-Af Amer) > 60 > 60 Glucose 107 104 Calcium 7.8 L 8.0 L Phosphorus 1.9 L Magnesium 2.2 01/10/18 01/10/18 01/10/18 02:01 02:01 06:12 Creatine Kinase 61 58 CK-MB (CK-2) 0.65 Troponin I < 0.012 01/10/18 08:00 Creatine Kinase CK-MB (CK-2) 0.52 Troponin I < 0.012 Impressions: Limited or Localized CT 01/09/18 15:20 IMPRESSION: NO SIGNIFICANT OR ACUTE PROCESS IN THE ABDOMEN OR PELVIS. Assessment & Plan - Diagnosis (1) Diabetes mellitus, new onset Is this a current diagnosis for this admission?: Yes Plan: Newly diagnosed, HgA1c 10.9% - Continue insulin GGT (18U/hr this AM), better blood sugar control and gap closed - Continue IV fluids. - Repleting lytes, continue daily BMPs. - Consider transition to SubQ on 01/12 if improved. (2) Nausea Is this a current diagnosis for this admission?: Yes Plan: Intermittent; has Zofran ordered (3) Hypomagnesemia Is this a current diagnosis for this admission?: Yes Plan: Improved, Mag 2.2 on 01/11 (4) Hypophosphatemia Is this a current diagnosis for this admission?: Yes Plan: Phos 1.9 on 01.11, will replete (5) Tobacco dependence Is this a current diagnosis for this admission?: Yes Plan: Nicotene patch ordered. - Time Time Spent with patient: Less than 15 minutes Anticipated discharge: Home, Home with Homehealth Within: within 48 hours
[2018-01-11] MEDS ORDERED: CALCIUM ACETATE 667 MG CAPSULE PO ONE (12:30)
[2018-01-11 15:04] LABS: ANION GAP 11 (5-19); BLOOD UREA NITROGEN 2 mg/dL (7-20); CARBON DIOXIDE 16 mmol/L (22-30); CHLORIDE 112 mmol/L (98-107); GLUCOSE 132 mg/dL (75-110); POTASSIUM 3.3 mmol/L (3.6-5.0); SODIUM 138.7 mmol/L (137-145)
[2018-01-11 18:23] LABS: ANION GAP 9 (5-19); BLOOD UREA NITROGEN 2 mg/dL (7-20); CALCIUM 8.3 mg/dL (8.4-10.2); CARBON DIOXIDE 19 mmol/L (22-30); CHLORIDE 110 mmol/L (98-107); GLUCOSE 151 mg/dL (75-110)
[2018-01-11] MEDS ORDERED: POTASSIUM CHLORIDE 10 MEQ CAPSULE.ER PO ONE (20:00)
[2018-01-11 22:50] LABS: ANION GAP 10 (5-19); BLOOD UREA NITROGEN 2 mg/dL (7-20); CALCIUM 8.3 mg/dL (8.4-10.2); CARBON DIOXIDE 20 mmol/L (22-30); CHLORIDE 109 mmol/L (98-107); GLUCOSE 134 mg/dL (75-110); POTASSIUM 3.5 mmol/L (3.6-5.0); SODIUM 138.8 mmol/L (137-145)
[2018-01-12] MEDS: POTASSI CL 20 MEQ/D5-1/2NS 1L 1,000 ML IV PRN ×4 (00:30→13:58)
[2018-01-12 02:23] LABS: ANION GAP 11 (5-19); BLOOD UREA NITROGEN 2 mg/dL (7-20); CALCIUM 8.1 mg/dL (8.4-10.2); CARBON DIOXIDE 20 mmol/L (22-30); CHLORIDE 110 mmol/L (98-107); GLUCOSE 123 mg/dL (75-110); POTASSIUM 3.1 mmol/L (3.6-5.0); SODIUM 141.3 mmol/L (137-145)
[2018-01-12] MEDS: NORMAL SALINE 100 ML with INSULIN REGULAR, HUMAN 100 UNIT IV PRN ×4 (04:48→10:39)
[2018-01-12 07:28] LABS: ANION GAP 9 (5-19); BLOOD UREA NITROGEN 2 mg/dL (7-20); CALCIUM 8.1 mg/dL (8.4-10.2); CARBON DIOXIDE 20 mmol/L (22-30); CHLORIDE 112 mmol/L (98-107); GLUCOSE 105 mg/dL (75-110); PHOSPHORUS 2.2 mg/dL (2.5-4.5); POTASSIUM 3.2 mmol/L (3.6-5.0); SODIUM 141.2 mmol/L (137-145)
[2018-01-12] MEDS: POTASSIUM CHLORIDE 10 MEQ CAPSULE.ER PO SCH ×2 (09:23→21:45)
[2018-01-12 10:45] LABS: ANION GAP 12 (5-19); BLOOD UREA NITROGEN 2 mg/dL (7-20); CALCIUM 8.5 mg/dL (8.4-10.2); CARBON DIOXIDE 19 mmol/L (22-30); CHLORIDE 110 mmol/L (98-107); GLUCOSE 95 mg/dL (75-110); POTASSIUM 3.4 mmol/L (3.6-5.0); SODIUM 141.3 mmol/L (137-145)
[2018-01-12 14:55] LABS: ANION GAP 10 (5-19); BLOOD UREA NITROGEN 2 mg/dL (7-20); CALCIUM 8.5 mg/dL (8.4-10.2); CARBON DIOXIDE 22 mmol/L (22-30); CHLORIDE 110 mmol/L (98-107); GLUCOSE 129 mg/dL (75-110); POTASSIUM 3.5 mmol/L (3.6-5.0)
--- NOTE | 2018-01-12 15:23 | PDOC PROGRESS REPORT ---
Subjective Progress Note for:: 01/12/18 Subjective:: 37 yr old male who presented with newly diagnosed was found to be in DKA. He was started on IV fluids and Insulin gtt. Abdominal pain has resolved. Anion gap has normalised. He will be started on a diet and Lantus and sliding scale insulin, diabetic education. Adjust Insulin dosages for possible discharge home on 01/13/18 Reason For Visit: DKA Physical Exam Vital Signs: Temp Pulse Resp BP Pulse Ox 98.1 F 88 16 136/77 H 98 01/12/18 11:03 01/12/18 11:03 01/12/18 11:03 01/12/18 11:03 01/12/18 11:03 Intake & Output 01/11/18 01/12/18 01/13/18 06:59 06:59 06:59 Intake Total 5908 6542 500 Balance 5908 6542 500 Weight 124 kg 122.6 kg Results Laboratory Results: 01/10/18 06:12 01/12/18 14:22 01/11/18 01/11/18 01/11/18 14:30 18:05 22:07 Sodium 138.7 138.0 138.8 Potassium 3.3 L 3.0 L* 3.5 L Chloride 112 H 110 H 109 H Carbon Dioxide 16 L 19 L 20 L Anion Gap 11 9 10 BUN 2 L 2 L 2 L Creatinine 0.41 L 0.43 L 0.47 L Est GFR ( Amer) > 60 > 60 > 60 Est GFR (Non-Af Amer) > 60 > 60 > 60 Glucose 132 H 151 H 134 H Calcium 8.0 L 8.3 L 8.3 L Phosphorus Magnesium 01/12/18 01/12/18 01/12/18 02:03 06:16 10:08 Sodium 141.3 141.2 141.3 Potassium 3.1 L 3.2 L 3.4 L Chloride 110 H 112 H 110 H Carbon Dioxide 20 L 20 L 19 L Anion Gap 11 9 12 BUN 2 L 2 L 2 L Creatinine 0.50 L 0.42 L 0.45 L Est GFR ( Amer) > 60 > 60 > 60 Est GFR (Non-Af Amer) > 60 > 60 > 60 Glucose 123 H 105 95 Calcium 8.1 L 8.1 L 8.5 Phosphorus 2.2 L Magnesium 2.1 01/12/18 14:22 Sodium 142.0 Potassium 3.5 L Chloride 110 H Carbon Dioxide 22 Anion Gap 10 BUN 2 L Creatinine 0.44 L Est GFR ( Amer) > 60 Est GFR (Non-Af Amer) > 60 Glucose 129 H Calcium 8.5 Phosphorus Magnesium 01/10/18 01/10/18 01/10/18 02:01 02:01 06:12 Creatine Kinase 61 58 CK-MB (CK-2) 0.65 Troponin I < 0.012 01/10/18 08:00 Creatine Kinase CK-MB (CK-2) 0.52 Troponin I < 0.012 Impressions: Limited or Localized CT 01/09/18 15:20 IMPRESSION: NO SIGNIFICANT OR ACUTE PROCESS IN THE ABDOMEN OR PELVIS. Assessment & Plan - Diagnosis (1) DKA (diabetic ketoacidoses) Qualifiers: Diabetes mellitus type: type 2 Diabetes mellitus complication detail: without coma Qualified Code(s): E11.10 - Type 2 diabetes mellitus with ketoacidosis without coma Is this a current diagnosis for this admission?: Yes Plan: Improving. lantus, diabetic diet, sliding scale (2) Tobacco dependence Is this a current diagnosis for this admission?: Yes Plan: Nicotine patch as needed. (3) Hypomagnesemia Is this a current diagnosis for this admission?: Yes Plan: Replete (4) Hypophosphatemia Is this a current diagnosis for this admission?: Yes Plan: Replete (5) Hypokalemia Is this a current diagnosis for this admission?: Yes Plan: Replete - Time Time Spent with patient: 25-34 minutes
[2018-01-12] MEDS ORDERED: INSULIN GLARGINE,HUM.REC.ANLOG 1,000 UNIT/10 ML UNIT SUBCUT ONE (17:00)
[2018-01-12] MEDS: INSULIN LISPRO 100 UNIT/ML 3 ML VIAL SUBCUT PRN (21:44)
[2018-01-13 05:18] LABS: ABSOLUTE EOSINOPHILS # (AUTO) 0.2 10^3/uL (0.0-0.6); ABSOLUTE LYMPHOCYTES (AUTO) 2.4 10^3/uL (0.5-4.7); ABSOLUTE MONOCYTES (AUTO) 0.7 10^3/uL (0.1-1.4); ABSOLUTE NEUT (AUTO) 5.9 10^3/uL (1.7-8.2); BASOPHILS % (AUTO) 0.3 % (0-2); EOSINOPHILS % (AUTO) 2.2 % (0-6); HEMATOCRIT 35.9 % (37.9-51.0); HEMOGLOBIN 12.7 g/dL (13.5-17.0); LYMPHOCYTES % (AUTO) 25.6 % (13-45); MEAN CORPUSCULAR HEMOGLOBIN 29.6 pg (27.0-33.4); MEAN CORPUSCULAR HGB CONC 35.5 g/dL (32.0-36.0); MEAN CORPUSCULAR VOLUME 83 fl (80-97); MONOCYTES % (AUTO) 7.6 % (3-13); PLATELET COUNT 240 10^3/uL (150-450); RED CELL DISTRIBUTION WIDTH 14.4 % (11.5-14.0); SEGMENTED NEUTROPHILS % (AUTO) 64.3 % (42-78); TOTAL CELLS COUNTED % (AUTO) 100 %; WHITE BLOOD COUNT 9.2 10^3/uL (4.0-10.5)
[2018-01-13 05:29] LABS: ANION GAP 12 (5-19); BLOOD UREA NITROGEN 6 mg/dL (7-20); CALCIUM 8.7 mg/dL (8.4-10.2); CARBON DIOXIDE 21 mmol/L (22-30); CHLORIDE 110 mmol/L (98-107); GLUCOSE 170 mg/dL (75-110); LIPASE 55.7 U/L (23-300); PHOSPHORUS 3.4 mg/dL (2.5-4.5); POTASSIUM 3.8 mmol/L (3.6-5.0); SODIUM 142.7 mmol/L (137-145)
[2018-01-13] MEDS: INSULIN LISPRO 100 UNIT/ML 3 ML VIAL SUBCUT PRN ×2 (09:17→13:31)
[2018-01-13] MEDS: POTASSIUM CHLORIDE 10 MEQ CAPSULE.ER PO SCH (09:18)
[2018-01-13] MEDS ORDERED: INSULIN GLARGINE,HUM.REC.ANLOG 300 UNIT/3 ML INSULN.PEN SUBCUT SCH (10:00)
[2018-01-13 13:46] VITALS: BP 144/77
--- NOTE | 2018-01-13 16:46 | PDOC DISCHARGE SUMMARY ---
General - Admit/Disc Date/PCP Admission Date/Primary Care Provider: 01/09/18 18:33 Discharge Date: 01/13/18 - Patient seen on rounds this morning - Discharge Diagnosis (1) DKA (diabetic ketoacidoses) Is this a current diagnosis for this admission?: Yes (2) Diabetes mellitus, new onset Is this a current diagnosis for this admission?: Yes (3) Hypokalemia Is this a current diagnosis for this admission?: Yes (4) Hypomagnesemia Is this a current diagnosis for this admission?: Yes (5) Hypophosphatemia Is this a current diagnosis for this admission?: Yes - Additional Information Resuscitation Status: Full Code Prescriptions: Blood Sugar Diagnostic, Drum [Accu-Chek Compact] 1 each MC QID #100 strip Blood-Glucose Meter [Blood Glucose Meter] 1 each MC QID #1 each Insulin Glargine,Hum.rec.anlog [Lantus] 35 unit SQ QHS #1 vial Insulin Regular, Human [Novolin R (Reg) Insulin 100 unit/mL] 0 unit SUBCUT .SLD SCALE #10 ml Metformin HCl [Glucophage] 500 mg PO DAILY #60 tablet Pen Needle, Diabetic [Insulin Pen Needle] 1 each MC QID #100 dis.needle Home Medications: Acetaminophen [Tylenol 325 mg Tablet] 650 mg PO Q4HP PRN tablet 01/13/18 Blood Sugar Diagnostic, Drum [Accu-Chek Compact] 1 each MC QID #100 strip Blood-Glucose Meter [Blood Glucose Meter] 1 each QID #1 each 01/13/18 Insulin Glargine,Hum.rec.anlog [Lantus Insulin 100 Unit/mL] 35 unit SUBCUT DAILY #0 insuln.pen 01/13/18 Insulin Glargine,Hum.rec.anlog [Lantus] 35 unit SQ QHS #1 vial 01/13/18 Insulin Regular, Human [Novolin R (Reg) Insulin 100 unit/mL] 0 unit SUBCUT .SLD SCALE #10 ml 01/13/18 Metformin HCl [Glucophage] 500 mg PO DAILY #60 tablet 01/13/18 Pen Needle, Diabetic [Insulin Pen Needle] 1 each QID #100 dis.needle History of Present Illness History of Present Illness: KADENLEONOR FELIX is a 37 year old male who was admitted for DKA. Please see initial H&P. Hospital Course Hospital Course: After admission to the hospital he was started on insulin drip and later transitioned to Lantus and mealtime insulin. His blood sugars normalized and his anion gap closed. He did have electrolyte imbalance secondary to his DKA and these were also addressed and resolved. Patient has been doing well and sugar has been better controlled. Patient requested discharge this morning. Discussed and counseled him about diabetes and medications. He was also started on a gradually increasing dose of metformin. He has been trained on how to inject himself. Advised to make appointment with PCP and possibly roll slicing machine tender. Discussed about diet. Patient is also a smoker and discussed about quitting. He does not want nicotine patch at this time. Case management was consulted for help with medications. On day of discharge patient was tolerating a good diet and back to his baseline. His A1c was 10.9. He was told to follow-up with PCP within 1 week. Physical Exam Vital Signs: Temp Pulse Resp BP Pulse Ox 97.9 F 86 12 145/83 H 96 01/13/18 07:24 01/13/18 07:24 01/13/18 07:24 01/13/18 07:24 01/13/18 07:24 Intake & Output 01/12/18 01/13/18 01/14/18 06:59 06:59 06:59 Intake Total 6542 4216 Balance 6542 4216 Weight 270 lb 4.587 oz 267 lb 13.786 oz General appearance: PRESENT: no acute distress, obese Eye exam: PRESENT: EOMI. ABSENT: conjunctival injection, scleral icterus Ear exam: PRESENT: normal external ear exam Mouth exam: PRESENT: moist, neck supple Neck exam: PRESENT: full ROM. ABSENT: JVD, tenderness Respiratory exam: PRESENT: clear to auscultation srinath, symmetrical Cardiovascular exam: PRESENT: RRR, +S1, +S2 Pulses: PRESENT: +2 pedal pulses bilateral GI/Abdominal exam: PRESENT: normal bowel sounds, soft. ABSENT: tenderness Extremities exam: ABSENT: calf tenderness, joint swelling, pedal edema Musculoskeletal exam: PRESENT: full ROM. ABSENT: tenderness Neurological exam: PRESENT: alert, altered, awake, oriented to person, oriented to place, oriented to time, oriented to situation, CN II-XII grossly intact Skin exam: PRESENT: dry, warm Results Laboratory Results: 01/13/18 04:26 01/13/18 04:26 01/12/18 01/13/18 01/13/18 14:22 04:26 04:26 WBC 9.2 RBC 4.30 L Hgb 12.7 L Hct 35.9 L MCV 83 MCH 29.6 MCHC 35.5 RDW 14.4 H Plt Count 240 Seg Neutrophils % 64.3 Lymphocytes % 25.6 Monocytes % 7.6 Eosinophils % 2.2 Basophils % 0.3 Absolute Neutrophils 5.9 Absolute Lymphocytes 2.4 Absolute Monocytes 0.7 Absolute Eosinophils 0.2 Absolute Basophils 0.0 Sodium 142.0 142.7 Potassium 3.5 L 3.8 Chloride 110 H 110 H Carbon Dioxide 22 21 L Anion Gap 10 12 BUN 2 L 6 L Creatinine 0.44 L 0.47 L Est GFR ( Amer) > 60 > 60 Est GFR (Non-Af Amer) > 60 > 60 Glucose 129 H 170 H Calcium 8.5 8.7 Phosphorus 3.4 Magnesium 2.0 Lipase 55.7 01/10/18 01/10/18 01/10/18 02:01 02:01 06:12 Creatine Kinase 61 58 CK-MB (CK-2) 0.65 Troponin I < 0.012 01/10/18 08:00 Creatine Kinase CK-MB (CK-2) 0.52 Troponin I < 0.012 Impressions: Limited or Localized CT 01/09/18 15:20 IMPRESSION: NO SIGNIFICANT OR ACUTE PROCESS IN THE ABDOMEN OR PELVIS. Qualifiers - * PATIENT BEING DISCHARGED WITH ANY OF THE FOLLOWING DIAGNOSIS: No Plan Discharge Plan: Follow with PCP and possibly roll slicing machine tender if needed. Start taking Lantus and Regular Insulin. Time Spent: Less than 30 Minutes
== END 2018-01-13 16:50 | disposition home or self-care (01) | DRG 639 ==
LOC: ER 14:10 → EH 18:33 → 3W 21:07
PROVIDERS: ADMIT Internal Medicine; ATTEND Internal Medicine
DX: E11.10 Type 2 diabetes mellitus with ketoacidosis without coma (principal); E83.42 Hypomagnesemia; E83.39 Other disorders of phosphorus metabolism; E87.6 Hypokalemia; F17.200 Nicotine dependence, unspecified, uncomplicated; Z79.4 Long term (current) use of insulin
CPT/HCPCS: 36415; 76380; 80048; 80053; 80061; 80307; 81001; 82550; 82553; 82803; 82962; 83036; 83690; 83735; 84100; 84484; 85025; 93005; 93010; 96361; 96374; 99285; J1815; J1885; J3475; J3480; J7030; S0164

== ENCOUNTER → 2018-01-18 | Outpatient (CLI) | payer OTHER ==
[2018-01-18 11:37] LABS: HEMATOCRIT 42.1 % (37.9-51.0); HEMOGLOBIN 14.8 g/dL (13.5-17.0); MEAN CORPUSCULAR HEMOGLOBIN 29.5 pg (27.0-33.4); MEAN CORPUSCULAR HGB CONC 35.3 g/dL (32.0-36.0); MEAN CORPUSCULAR VOLUME 84 fl (80-97); PLATELET COUNT 354 10^3/uL (150-450); RED BLOOD COUNT 5.04 10^6/uL (4.35-5.55); RED CELL DISTRIBUTION WIDTH 13.7 % (11.5-14.0); WHITE BLOOD COUNT 9.2 10^3/uL (4.0-10.5)
[2018-01-18 12:03] LABS: DIRECT LDL 156 mg/dL (<100)
[2018-01-18 12:05] LABS: TRIGLYCERIDES 784 mg/dL (<150)
[2018-01-18 12:25] LABS: ABSOLUTE LYMPHOCYTES# (MANUAL) 3.4 10^3/uL (0.5-4.7); ABSOLUTE MONOCYTES # (MANUAL) 0.6 10^3/uL (0.1-1.4); BASOPHILS % (MANUAL) 0 % (0-2); EOSINOPHILS % (MANUAL) 2 % (0-6); LYMPHOCYTES % (MANUAL) 36 % (13-45); MONOCYTES % (MANUAL) 7 % (3-13); SEGMENTED NEUTROPHILS % (MAN) 54 % (42-78); TOTAL CELLS COUNTED 100
[2018-01-18 12:26] LABS: PLATELET COMMENT ADEQUATE; RBC MORPHOLOGY COMMENT NORMO-CYTIC/CHROMIC
== END ==
LOC: OD 10:49
DX: E11.8 Type 2 diabetes mellitus with unspecified complications (principal)
CPT/HCPCS: 36415; 80061; 83036; 85025